=== PATIENT | male | born 1965 | race Caucasian/White ===

== ENCOUNTER → 2021-01-12 | Outpatient (CLI) | payer BC ==
--- NOTE | 2021-01-12 11:15 | RAD ---
CT THORAX WO HISTORY: NICOTINE USE X20 YEARS, 2 PACKS A DAY. Lung cancer screening. COMPARISON: None. TECHNIQUE: Low-dose noncontrast CT scan of the chest. FINDINGS: Aorta and great vessels: No aneurysm of the aortic arch or thoracic aorta is seen. No atherosclerotic calcification. Thyroid: No significant abnormalities. Mediastinum and gerda: No mediastinal masses or adenopathy is seen. A few calcified mediastinal and hi lar lymph nodes. Esophagus: The visualized esophagus is normal. Heart: The heart is normal in size. There is no pericardial effusion. Minimal coronary artery calcifi cation. Airways, Lungs and Pleura: Patent airways. Mild bronchial wall thickening. No bronchiectasis. No air space consolidation. Innumerable, peripheral and lower lobe predominant 3 mm and smaller micronodules , many of which are calcified. Calcified left lower lobe granuloma measuring 9 mm diameter. Upper abdomen: Limited evaluation of the upper abdomen is unremarkable. Osseous structures and soft tissues: Within normal limits for age. IMPRESSION: 1. 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 No garza spicious pulmonary nodules measuring greater than 6 mm diameter. LUNG RADS: Category 2: Benign appearance or behavior. Follow up: Continue annual screening with LDCT in 12 months. Exposure: One or more of the following individualized dose reduction techniques were utilized for thi s examination: 1. Automated exposure control 2. Adjustment of the mA and/or kV according to patient size 3. Use of iterative reconstruction technique. Electronically signed by: Donta Deleon MD (01/12/2021 11:13 AM) [facility]
== END ==
LOC: CT 08:48
PROVIDERS: ATTEND Internal Medicine Pulmonary Disease
DX: Z12.2 Encounter for screening for malignant neoplasm of respiratory organs (principal); R91.8 Other nonspecific abnormal finding of lung field; J84.10 Pulmonary fibrosis, unspecified; R59.0 Localized enlarged lymph nodes; I25.10 Atherosclerotic heart disease of native coronary artery without angina pectoris; Z72.0 Tobacco use
CPT/HCPCS: 71250